=== PATIENT | male | born 1965 | race Caucasian/White ===

== ENCOUNTER 2017-06-21 14:53 | Emergency (ER) | payer MEDICAID ==
[~2017-06-21] VITALS: Ht 167.6 cm; Wt 116.0 kg
[2017-06-22] MEDS ORDERED: SULF1TAB49 PO (19:13)
[2017-06-22] MEDS ORDERED: CEPH500C5 PO (19:13)
== END 2017-06-21 16:45 | disposition left against medical advice (07) ==
LOC: MERGE 14:53 → ER 14:53
DX: H00.036 Abscess of eyelid left eye, unspecified eyelid (principal); L02.01 Cutaneous abscess of face
CPT/HCPCS: 99281

== ENCOUNTER 2017-06-22 17:21 | Emergency (ER) | payer MEDICAID ==
[~2017-06-22] VITALS: Ht 167.6 cm; Wt 117.0 kg
[2017-06-22] MEDS ORDERED: SULF1TAB49 PO (19:13)
[2017-06-22] MEDS ORDERED: CEPH500C5 PO (19:13)
== END 2017-06-22 19:33 | disposition left against medical advice (07) ==
LOC: ER 17:22 → MERGE 17:22 → ER 19:33
DX: L03.213 Periorbital cellulitis (principal); L02.01 Cutaneous abscess of face; H44.002 Unspecified purulent endophthalmitis, left eye; F17.200 Nicotine dependence, unspecified, uncomplicated; Z79.2 Long term (current) use of antibiotics
CPT/HCPCS: 99283

== ENCOUNTER 2020-07-17 02:44 | Inpatient (IN) | payer MEDICAID ==
[~2020-07-17] VITALS: Ht 167.6 cm; Wt 111.4 kg
[2020-07-17] MEDS ORDERED: normal saline 1000ML IV soln IVB ONE (03:05)
[2020-07-17 03:39] LABS: CLARITY,URINE CLEAR (Clear); COLOR,URINE YELLOW (Yellow); GLUCOSE, URINE >=1000 mg/dl (Neg); KETONES,URINE 40 mg/dl (Neg); LEUKOCYTE ESTERASE ,URINE NEGATIVE (Neg); NITRITES, URINE NEGATIVE (Neg); OCCULT BLOOD,URINE TRACE-INTACT (Neg); PH,URINE 5.5 (4.8-8.0); PROTEIN,URINE 30 mg/dl (Neg); UROBILINOGEN,URINE 0.2 E.U/dL (0.2-1.0)
[2020-07-17 03:42] LABS: BASOPHILS % (AUTO) 0.4 % (0-1); EOSINOPHILS % (AUTO) 0.1 % (0-6); HEMATOCRIT 52.8 % (42.0-52.0); HEMOGLOBIN 17.3 g/dl (14.0-17.9); LYMPHOCYTES # (AUTO) 0.5 X10'3 (1.1-4.8); LYMPHOCYTES % (AUTO) 4.9 % (21-51); MEAN CORPUSCULAR HEMOGLOBIN 30.2 PG (27.0-31.0); MEAN CORPUSCULAR HGB CONC 32.8 g/dL (33.0-36.5); MEAN PLATELET VOLUME 8.7 FL (7.4-10.4); MONOCYTES # (AUTO) 0.3 X10'3 (0-0.9); MONOCYTES % (AUTO) 2.7 % (2-12); NEUTROPHILS # (AUTO) 9.6 X10'3 (1.8-7.7); NEUTROPHILS % (AUTO) 91.9 % (42-75); PLATELET COUNT 433 X10'3 (140-440); RED BLOOD COUNT 5.74 X10'6 (4.70-6.10); WHITE BLOOD COUNT 10.4 X10'3 (4.5-11.0)
--- NOTE | 2020-07-17 03:43 | NUR ---
during triage assessment, pt repeating requests for water and unable to be redirected. pt became agitated with staff when refused water due to choking the first time water was provided to pt. pt does not remember this event. perseverating on receiving water.
[2020-07-17 03:47] LABS: UA COLLECTION TYPE VOIDED
--- NOTE | 2020-07-17 03:59 | NUR ---
patient to altered to be in room one w/o eyes on patient patient pulled out iv demanding glass of water in an elevated voice, patient easy to redirect
[2020-07-17 04:01] LABS: ALANINE AMINOTRANSFERASE 48 U/L (12-78); ALBUMIN 3.5 G/DL (3.4-5.0); ALBUMIN/GLOBULIN RATIO 0.7 (1.1-1.5); ALKALINE PHOSPHATASE 130 IU/L (46-116); ANION GAP 20 (8-16); ASPARTATE AMINO TRANSFERASE 23 U/L (10-37); BILIRUBIN,TOTAL 0.4 MG/DL (0.1-1.0); BLOOD UREA NITROGEN 30 MG/DL (7-18); BUN/CREATININE RATIO 20.1 (5.4-32.0); CALCIUM 9.1 MG/DL (8.5-10.1); CHLORIDE 99 MMOL/L (99-107); CREATINE KINASE 101 U/L (39-308); CREATININE 1.49 MG/DL (0.60-1.10); LIPASE 171 U/L (73-393); POTASSIUM 5.2 MMOL/L (3.5-5.1); SODIUM 138 MMOL/L (135-145); TOTAL CARBON DIOXIDE 19.3 MMOL/L (24-32); TOTAL PROTEIN 8.4 G/DL (6.4-8.2); TROPONIN I < 0.04 NG/ML (0.0-0.05); eGFR 49 ML/MIN
[2020-07-17 04:04] LABS: WBC,URINE 0-4 /HPF (0-4)
[2020-07-17 04:05] LABS: BACTERIA,URINE 1+ /HPF (Neg); RBC,URINE 0-2 /HPF (0-2); SQUAMOUS EPITHELIAL CELL,UR MODERATE /LPF (FEW)
[2020-07-17 04:10] LABS: GLUCOSE 618 MG/DL (70-104)
[2020-07-17] MEDS ORDERED: insulin regular, human 10 units/0.1 ml syringe IV ONE (04:10)
[2020-07-17] MEDS ORDERED: iohexol 350MG/ML 100ml bottle IV ONE (04:14)
--- NOTE | 2020-07-17 05:25 | NUR ---
DR. COY AT BEDSIDE ASSESSING PATIENT
[2020-07-17] MEDS ORDERED: NO HOME MEDS (05:34)
[2020-07-17] MEDS ORDERED: insulin glargine (Lantus) pen - multi-dose SQ ONE (05:35)
[2020-07-17] MEDS ORDERED: normal saline 1000ml 1,000 ML IVB ONE (05:35)
[2020-07-17] MEDS ORDERED: acetaminophen 325mg tablet PO PRN (05:40)
[2020-07-17] MEDS ORDERED: mag hydrox/Alum hydrox/simeth 30ml oral suspension PO PRN (05:40)
[2020-07-17] MEDS ORDERED: ondansetron/PF 4mg/2ml inj IV PRN (05:40)
[2020-07-17] MEDS ORDERED: magnesium hydroxide 30ml (MOM) UD suspension PO PRN (05:40)
[2020-07-17] MEDS: normal saline 1000ml 1,000 ML IV SCH ×2 (05:40→21:20)
[2020-07-17] MEDS ORDERED: dextrose ORAL solution 15 GM/59 ML bottle PO PRN ×2 (05:45)
[2020-07-17] MEDS ORDERED: dextrose 50%-water 50ml dispensing syringe IV PRN ×2 (05:45)
[2020-07-17] MEDS ORDERED: MESSAGE TO PHARMACY PO ONE (05:45)
[2020-07-17] MEDS ORDERED: glucagon, human recombinant 1mg kit SUBCUT PRN (05:45)
--- NOTE | 2020-07-17 05:50 | NUR ---
CALLED PHARMACY FOR PATIENTS JEREMY, PHARMACY VERBALIZED IT IS IN THE PROCESS OF GETTING PULLED
--- NOTE | 2020-07-17 05:59 | NUR ---
PATIENT HAS BEEN GIVEN 2 LITERS OF ICE WATER TOTAL SINCE DR. COY AT BEDSIDE
[2020-07-17 06:19] LABS: URINE AMPHETAMINE SCREEN POSITIVE (Neg); URINE BARBITUATE SCREEN NEGATIVE (Neg); URINE BENZODIAZEPINES SCREEN NEGATIVE (Neg); URINE CANNABINOID SCREEN NEGATIVE (Neg); URINE COCAINE SCREEN NEGATIVE (Neg); URINE METHADONE SCREEN NEGATIVE (Neg); URINE OPIATE SCREEN NEGATIVE (Neg); URINE PHENCYCLIDINE SCREEN NEGATIVE (Neg)
[2020-07-17 07:25] LABS: HEMOGLOBIN A1C 9.8 % (4.5-6.2)
[2020-07-17] MEDS: enoxaparin 40mg/0.4ml syringe SUBCUT SCH (09:30)
[2020-07-17 10:06] VITALS: BP 148/70
--- NOTE | 2020-07-17 11:30 | NUR ---
DM Consult: A1C 9.8. Pt admit w/ ALOC found sleeping outside his [place] was stuck on railroad tracks per EMR. DX new onset DM, dehydration, and ALOC per EMR. Glu 618 on admit down to 396 currently w/ family hx DM but no hx DM TOWN ADMINISTRATOR or PCP per EMR. Positive for meth this admit as well. PO 0% first carb controlled meal this AM. Pt would benefit from thorough DM ed this admit given new onset once has received official DX by . EFRAIN unable to provide DM ed until official DM DX provided this admit. Will continue to monitor for protein/kcal and DM ed needs this admit. Rec: 1. continue carb controlled diet; encourage PO 2. monitor for ONS needs 3. routine bowel care 4. scaled wt this admit 5. DM ed prior to discharge once pt received official DM DX by Addendum: 07/17/20 at [address] Amended: Links added.
--- NOTE | 2020-07-17 12:00 | NUR ---
Patient in room ORTHO 4011. I have received report from Ren Finch and had the opportunity to ask questions and assume patient care.
[2020-07-17] MEDS: insulin Lispro (HumaLOG) vial - multi-dose SQ SCH ×3 (13:18→21:19)
[2020-07-17 18:00] VITALS: BP 121/72
--- NOTE | 2020-07-17 18:46 | NUR ---
Patient in room ORTHO 4011. I have received report from Rosemary NETTLES and had the opportunity to ask questions and assume patient care.
[2020-07-17] MEDS: insulin glargine (Lantus) pen - multi-dose SQ SCH (21:18)
[2020-07-17 22:00] VITALS: BP 105/74
[2020-07-18] MEDS: normal saline 1000ml 1,000 ML IV SCH ×3 (02:03→21:42)
--- NOTE | 2020-07-18 06:09 | NUR ---
Problems reprioritized. Patient report given, questions answered & plan of care reviewed with Meek NETTLES.
[2020-07-18 07:30] VITALS: BP 109/61
[2020-07-18] MEDS: enoxaparin 40mg/0.4ml syringe SUBCUT SCH (08:05)
[2020-07-18] MEDS: insulin Lispro (HumaLOG) vial - multi-dose SQ SCH ×3 (08:09→19:29)
[2020-07-18 08:28] LABS: BASOPHILS # (AUTO) 0.1 X10'3 (0-0.2); EOSINOPHILS % (AUTO) 0.4 % (0-6); HEMATOCRIT 44.9 % (42.0-52.0); HEMOGLOBIN 15.3 g/dl (14.0-17.9); LYMPHOCYTES # (AUTO) 3.1 X10'3 (1.1-4.8); LYMPHOCYTES % (AUTO) 36.9 % (21-51); MEAN CORPUSCULAR HEMOGLOBIN 30.1 PG (27.0-31.0); MEAN CORPUSCULAR VOLUME 88.6 FL (78-98); MEAN PLATELET VOLUME 8.5 FL (7.4-10.4); MONOCYTES # (AUTO) 0.6 X10'3 (0-0.9); MONOCYTES % (AUTO) 7.7 % (2-12); NEUTROPHILS # (AUTO) 4.5 X10'3 (1.8-7.7); PLATELET COUNT 365 X10'3 (140-440); RED BLOOD COUNT 5.07 X10'6 (4.70-6.10); RED CELL DISTRIBUTION WIDTH 13.3 % (11.5-14.5); WHITE BLOOD COUNT 8.3 X10'3 (4.5-11.0)
[2020-07-18 08:59] LABS: ALANINE AMINOTRANSFERASE 41 U/L (12-78); ALBUMIN 3.1 G/DL (3.4-5.0); ALBUMIN/GLOBULIN RATIO 0.8 (1.1-1.5); ALKALINE PHOSPHATASE 88 IU/L (46-116); ANION GAP 11 (8-16); ASPARTATE AMINO TRANSFERASE 33 U/L (10-37); BILIRUBIN,TOTAL 0.6 MG/DL (0.1-1.0); BLOOD UREA NITROGEN 20 MG/DL (7-18); BUN/CREATININE RATIO 20.4 (5.4-32.0); CALCIUM 8.6 MG/DL (8.5-10.1); CHLORIDE 100 MMOL/L (99-107); CREATININE 0.98 MG/DL (0.60-1.10); GLUCOSE 298 MG/DL (70-104); POTASSIUM 3.8 MMOL/L (3.5-5.1); SODIUM 137 MMOL/L (135-145); TOTAL CARBON DIOXIDE 25.7 MMOL/L (24-32); TOTAL PROTEIN 7.2 G/DL (6.4-8.2); eGFR 80 ML/MIN
[2020-07-18 10:10] VITALS: BP 136/72
[2020-07-18 14:15] VITALS: BP 128/83
--- NOTE | 2020-07-18 16:08 | NUR ---
DM Education: supervisor international reservations visited pt at bedside to provide written and verbal DM education. D/w pt importance of eating protein with meals and snacks, eating non-starchy vegetables, staying hydrated and practicing portion sizes. Practiced breakfast meal planning with pt, and set up a goal of eating 45-60grams of carbohydrates per meal. Encouraged pt to f/u with MD to discuss diabetes medication and having a blood glucose monitor. Patient is very attentive and verbalized understanding of DM education. Will continue to monitor. Addendum: 07/18/20 at [address] Amended: Links added.
[2020-07-18 18:00] VITALS: BP_SYST 125; BP_SYST 135; BP_SYST 164; BP_DIAS 113; BP_DIAS 84; BP_DIAS 97
--- NOTE | 2020-07-18 18:00 | NUR ---
Problems reprioritized. Patient report given, questions answered & plan of care reviewed with RN.
[2020-07-18] MEDS: insulin glargine (Lantus) pen - multi-dose SQ SCH (21:11)
[2020-07-18 22:00] VITALS: BP 134/85
[2020-07-19] MEDS: normal saline 1000ml 1,000 ML IV SCH (05:02)
[2020-07-19 06:00] VITALS: BP 132/98
--- NOTE | 2020-07-19 06:42 | NUR ---
Patient in room ORTHO 4011. I have received report from Elizabeth NETTLES and had the opportunity to ask questions and assume patient care.
[2020-07-19 07:39] LABS: BASOPHILS % (AUTO) 0.3 % (0-1); EOSINOPHILS % (AUTO) 0.7 % (0-6); HEMATOCRIT 44.7 % (42.0-52.0); LYMPHOCYTES % (AUTO) 39.3 % (21-51); MEAN CORPUSCULAR HEMOGLOBIN 29.6 PG (27.0-31.0); MEAN CORPUSCULAR HGB CONC 33.5 g/dL (33.0-36.5); MEAN CORPUSCULAR VOLUME 88.2 FL (78-98); MEAN PLATELET VOLUME 8.2 FL (7.4-10.4); MONOCYTES # (AUTO) 0.5 X10'3 (0-0.9); MONOCYTES % (AUTO) 10.6 % (2-12); NEUTROPHILS # (AUTO) 2.5 X10'3 (1.8-7.7); NEUTROPHILS % (AUTO) 49.1 % (42-75); PLATELET COUNT 330 X10'3 (140-440); RED BLOOD COUNT 5.07 X10'6 (4.70-6.10); RED CELL DISTRIBUTION WIDTH 13.2 % (11.5-14.5); WHITE BLOOD COUNT 5.1 X10'3 (4.5-11.0)
[2020-07-19] MEDS: enoxaparin 40mg/0.4ml syringe SUBCUT SCH (08:06)
[2020-07-19] MEDS: insulin Lispro (HumaLOG) vial - multi-dose SQ SCH ×2 (08:06→13:29)
[2020-07-19 08:09] LABS: ALANINE AMINOTRANSFERASE 43 U/L (12-78); ALBUMIN 2.5 G/DL (3.4-5.0); ALBUMIN/GLOBULIN RATIO 0.7 (1.1-1.5); ALKALINE PHOSPHATASE 75 IU/L (46-116); ANION GAP 6 (8-16); ASPARTATE AMINO TRANSFERASE 32 U/L (10-37); BILIRUBIN,TOTAL 0.4 MG/DL (0.1-1.0); BLOOD UREA NITROGEN 12 MG/DL (7-18); BUN/CREATININE RATIO 17.9 (5.4-32.0); CALCIUM 8.4 MG/DL (8.5-10.1); CHLORIDE 105 MMOL/L (99-107); CREATININE 0.67 MG/DL (0.60-1.10); GLUCOSE 232 MG/DL (70-104); POTASSIUM 3.5 MMOL/L (3.5-5.1); SODIUM 140 MMOL/L (135-145); TOTAL CARBON DIOXIDE 29.4 MMOL/L (24-32); eGFR > 90 ML/MIN
[2020-07-19 08:15] VITALS: BP 141/67
[2020-07-19 08:17] VITALS: BP 135/93
[2020-07-19 08:18] VITALS: BP 153/90
[2020-07-19 09:57] VITALS: BP 119/55
--- NOTE | 2020-07-19 12:59 | NUR ---
Paged Dr. Patel PAGER ID: [phone] MESSAGE: Ortho/ Neuro Tyra NETTLES ext [phone]. RE; Christie Kuhn. Patient do no have glucometer at home and does not know how to use it. I will teach him here but he still need his own. His mom will teach him he said, Need rx for strips and needles
[2020-07-19] MEDS ORDERED: INSU100I25 SQ (13:24)
[2020-07-19] MEDS ORDERED: PEN1DIS.78 SQ (13:24)
--- NOTE | 2020-07-19 14:49 | NUR ---
Discharge instructions given to patient including diabetes management on the DM [employer] skills packet, A1C discussed with the patient, how to check blood glucose, how to administer insulin, discouraged patient on sharing needles and proper disposal of needle to sharp container. I also discussed importance of making sure he establish care with a PCP at [facility] on Tuesday07/21/20 to get appointment and to have a provider manage his diabetes. A yellow script prescription for glucometer, lancets, strips, and control solution was given to patient, was placed inside his discharge folder. Prescription for Levemir was e-sent to his pharmacy. Signs and symptoms to watch for and to check his blood sugar if he is feeling sick. Patient verbalized understanding of all instructions made. Peripheral IV catheter removed, tip intact. Instructed patient to ensure he has all his belongings with him before leaving. Patient awaiting for his mom to give him a ride.
== END 2020-07-19 15:00 | disposition home or self-care (01) | DRG 420 ==
LOC: ER 02:45 → ED HOLD 05:38 → ORTHO 4S 08:04
PROVIDERS: ADMIT Internal Medicine; ATTEND Internal Medicine
DX: E11.65 Type 2 diabetes mellitus with hyperglycemia (principal); E86.0 Dehydration; E87.2 Acidosis; G93.41 Metabolic encephalopathy; E66.01 Morbid (severe) obesity due to excess calories; K80.20 Calculus of gallbladder without cholecystitis without obstruction; R55 Syncope and collapse; N17.0 Acute kidney failure with tubular necrosis; Z83.3 Family history of diabetes mellitus; Z68.37 Body mass index [BMI] 37.0-37.9, adult
CPT/HCPCS: 36415; 70450; 71045; 71275; 80053; 80305; 81001; 82550; 82948; 83036; 83690; 83880; 84484; 85025; 93005; 93306; 93880; 96374; 99285; G0378; J1650; J1815; J7030; Q9967

== ENCOUNTER 2021-03-20 08:00 | Emergency (ER) | payer MEDICAID ==
[~2021-03-20] VITALS: Ht 167.6 cm; Wt 95.5 kg
[~2021-03-20 08:00] MED LIST: INSU100I25 SQ; PEN1DIS.78 SQ
[2021-03-20] MEDS ORDERED: BENZ-16 PO (08:25)
[2021-03-20] MEDS ORDERED: normal saline 1000ML IV soln IVB ONE (08:45)
[2021-03-20] MEDS ORDERED: ondansetron/PF 4mg/2ml inj IV ONE (08:45)
[2021-03-20 09:24] LABS: BASOPHILS % (AUTO) 0.8 % (0-1); EOSINOPHILS % (AUTO) 0 % (0-6); HEMATOCRIT 47.8 % (42.0-52.0); HEMOGLOBIN 16.8 g/dl (14.0-17.9); LYMPHOCYTES # (AUTO) 0.7 X10'3 (1.1-4.8); LYMPHOCYTES % (AUTO) 22.3 % (21-51); MEAN CORPUSCULAR HEMOGLOBIN 30.7 PG (27.0-31.0); MEAN CORPUSCULAR HGB CONC 35.3 g/dL (33.0-36.5); MEAN CORPUSCULAR VOLUME 87.2 FL (78-98); MEAN PLATELET VOLUME 7.4 FL (7.4-10.4); MONOCYTES # (AUTO) 0.3 X10'3 (0-0.9); MONOCYTES % (AUTO) 9.8 % (2-12); NEUTROPHILS # (AUTO) 2.2 X10'3 (1.8-7.7); NEUTROPHILS % (AUTO) 67.1 % (42-75); PLATELET COUNT 256 X10'3 (140-440); RED BLOOD COUNT 5.48 X10'6 (4.70-6.10); WHITE BLOOD COUNT 3.3 X10'3 (4.5-11.0)
[2021-03-20 09:37] LABS: ALANINE AMINOTRANSFERASE 39 U/L (12-78); ALBUMIN 2.9 G/DL (3.4-5.0); ALBUMIN/GLOBULIN RATIO 0.6 (1.1-1.5); ALKALINE PHOSPHATASE 107 IU/L (46-116); ANION GAP 9 (8-16); ASPARTATE AMINO TRANSFERASE 25 U/L (10-37); BILIRUBIN,TOTAL 0.4 MG/DL (0.1-1.0); BLOOD UREA NITROGEN 14 MG/DL (7-18); BUN/CREATININE RATIO 16.7 (5.4-32.0); CALCIUM 8.5 MG/DL (8.5-10.1); CHLORIDE 96 MMOL/L (99-107); CREATININE 0.84 MG/DL (0.60-1.10); GLUCOSE 277 MG/DL (70-104); LIPASE 88 U/L (73-393); POTASSIUM 4.2 MMOL/L (3.5-5.1); SODIUM 132 MMOL/L (135-145); TOTAL CARBON DIOXIDE 27.3 MMOL/L (24-32); TOTAL PROTEIN 7.6 G/DL (6.4-8.2); eGFR > 90 ML/MIN
--- NOTE | 2021-03-20 09:50 | NUR ---
pt to ct, pt refused to have covid swab done, slapped my hands away while attempting to swab pt. provider notified.
[2021-03-20 11:33] LABS: URINE AMPHETAMINE SCREEN POSITIVE (Neg); URINE BARBITUATE SCREEN NEGATIVE (Neg); URINE BENZODIAZEPINES SCREEN NEGATIVE (Neg); URINE CANNABINOID SCREEN NEGATIVE (Neg); URINE COCAINE SCREEN NEGATIVE (Neg); URINE METHADONE SCREEN NEGATIVE (Neg); URINE OPIATE SCREEN NEGATIVE (Neg); URINE PHENCYCLIDINE SCREEN NEGATIVE (Neg)
[2021-03-20 12:21] VITALS: BP 96/67
== END 2021-03-20 12:22 | disposition home or self-care (01) ==
LOC: ER 08:01
DX: J18.9 Pneumonia, unspecified organism (principal); R05.9 Cough, unspecified; R10.13 Epigastric pain; R11.0 Nausea; R19.7 Diarrhea, unspecified; R06.02 Shortness of breath; R51.9 Headache, unspecified; E11.9 Type 2 diabetes mellitus without complications; Z79.4 Long term (current) use of insulin
CPT/HCPCS: 36415; 71045; 74176; 80053; 80305; 83690; 84145; 84484; 85025; 96374; 99285; J2405; J7030

== ENCOUNTER 2022-08-28 12:23 | Inpatient (IN) | payer MEDICAID ==
[~2022-08-28] VITALS: Ht 170.2 cm; Wt 95.2 kg
[~2022-08-28 12:23] MED LIST changes: -INSU100I25 SQ; +INSU100I27 SQ
[2022-08-28 12:46] LABS: BASOPHILS # (AUTO) 0.1 X10'3 (0-0.2); BASOPHILS % (AUTO) 0.7 % (0-1); EOSINOPHILS % (AUTO) 0.3 % (0-6); HEMATOCRIT 47.4 % (42.0-52.0); HEMOGLOBIN 16.1 g/dl (14.0-17.9); LYMPHOCYTES # (AUTO) 1.5 X10'3 (1.1-4.8); LYMPHOCYTES % (AUTO) 16.9 % (21-51); MEAN CORPUSCULAR HEMOGLOBIN 29.9 PG (27.0-31.0); MEAN CORPUSCULAR HGB CONC 33.9 g/dL (33.0-36.5); MEAN CORPUSCULAR VOLUME 88.3 FL (78-98); MEAN PLATELET VOLUME 7.8 FL (7.4-10.4); MONOCYTES # (AUTO) 1.1 X10'3 (0-0.9); MONOCYTES % (AUTO) 12.3 % (2-12); NEUTROPHILS # (AUTO) 6.3 X10'3 (1.8-7.7); NEUTROPHILS % (AUTO) 69.8 % (42-75); PLATELET COUNT 514 X10'3 (140-440); RED BLOOD COUNT 5.37 X10'6 (4.70-6.10); RED CELL DISTRIBUTION WIDTH 13.1 % (11.5-14.5); WHITE BLOOD COUNT 9.1 X10'3 (4.5-11.0)
[2022-08-28 13:07] LABS: ALANINE AMINOTRANSFERASE 24 U/L (12-78); ALBUMIN 2.5 G/DL (3.4-5.0); ALBUMIN/GLOBULIN RATIO 0.5 (1.1-1.5); ALKALINE PHOSPHATASE 94 IU/L (46-116); ANION GAP 11 (8-16); ASPARTATE AMINO TRANSFERASE 18 U/L (10-37); BILIRUBIN,TOTAL 0.5 MG/DL (0.1-1.0); BLOOD UREA NITROGEN 15 MG/DL (7-18); BUN/CREATININE RATIO 16.7 (10.0-20.0); CALCIUM 9.2 MG/DL (8.5-10.1); CHLORIDE 97 MMOL/L (99-107); GLUCOSE 363 MG/DL (70-104); POTASSIUM 4.4 MMOL/L (3.5-5.1); SODIUM 132 MMOL/L (135-145); TOTAL CARBON DIOXIDE 23.9 MMOL/L (24-32); eGFR 87 ML/MIN
[2022-08-28 13:09] LABS: MAGNESIUM 1.7 MG/DL (1.5-2.4)
[2022-08-28] MEDS ORDERED: normal saline 1000ML IV soln IVB ONE (13:20)
[2022-08-28] MEDS ORDERED: iohexol 350MG/ML 100ml bottle IV ONE (13:39)
[2022-08-28] MEDS ORDERED: dexamethasone sod phosphate 10mg/ml inj PO STA (14:22)
[2022-08-28] MEDS ORDERED: ceFAZolin 1GM/D5W- ADD-VANTAGE 50 ML IV ONE (14:25)
[2022-08-28] MEDS ORDERED: furosemide 10 MG/1 ML 10ml inj IV ONE (14:25)
[2022-08-28] MEDS ORDERED: albuterol 2.5 MG/3 ML nebule NEB ONE (15:00)
[2022-08-28] MEDS ORDERED: glucagon, human recombinant 1mg kit SUBCUT PRN (16:00)
[2022-08-28] MEDS ORDERED: mag hydrox/Alum hydrox/simeth 30ml oral suspension PO PRN (16:00)
[2022-08-28] MEDS ORDERED: potassium Cl 40MEQ/1/2NS 520ml 520 ML IV PRN (16:00)
[2022-08-28] MEDS ORDERED: albuterol 2.5 MG/3 ML nebule NEB PRN (16:00)
[2022-08-28] MEDS ORDERED: magnesium 4gm in 100ml NS 100 ML IV PRN (16:00)
[2022-08-28] MEDS ORDERED: dextrose 50%-water 50ml dispensing syringe IV PRN ×2 (16:00)
[2022-08-28] MEDS ORDERED: DEXTROSE 15 GM of carb/4 tabs (each vial/BOTTLE has 4 tablets) PO PRN ×2 (16:00)
[2022-08-28] MEDS ORDERED: ipratropium/albuterol 3ml nebule NEB PRN (16:00)
[2022-08-28] MEDS ORDERED: HYDROcodone/acetaminophen 10/325mg tab PO PRN (16:00)
[2022-08-28] MEDS ORDERED: potassium Cl 20 mEq SR tablet PO PRN ×2 (16:00)
[2022-08-28] MEDS ORDERED: MESSAGE TO PHARMACY PO ONE (16:00)
[2022-08-28] MEDS ORDERED: PERFLUTREN PROTEIN-A MICROSPHR (Optison) 0.22 MG/ML 3ML VIAL IV ONE (16:00)
[2022-08-28] MEDS ORDERED: ondansetron/PF 4mg/2ml inj IV PRN (16:00)
[2022-08-28] MEDS ORDERED: acetaminophen 325mg tablet PO PRN ×2 (16:00)
[2022-08-28] MEDS: azithromycin 250mg tablet PO SCH (16:10)
[2022-08-28 16:40] LABS: CLARITY,URINE CLEAR (Clear); COLOR,URINE YELLOW (Yellow); GLUCOSE, URINE >=1000 mg/dl (Neg); KETONES,URINE 15 mg/dl (Neg); LEUKOCYTE ESTERASE ,URINE NEGATIVE (Neg); NITRITES, URINE NEGATIVE (Neg); OCCULT BLOOD,URINE NEGATIVE (Neg); PH,URINE 5.5 (4.8-8.0); PROTEIN,URINE NEGATIVE (Neg); UROBILINOGEN,URINE 0.2 E.U/dL (0.2-1.0)
[2022-08-28 16:43] LABS: UA COLLECTION TYPE CLN CATCH MIDSTREAM
[2022-08-28 16:45] LABS: BACTERIA,URINE NONE SEEN /HPF (Neg); MUCUS STRANDS NONE SEEN /LPF (Neg); RBC,URINE NONE SEEN /HPF (0-2); SQUAMOUS EPITHELIAL CELL,UR NONE SEEN /LPF (FEW); WBC,URINE NONE SEEN /HPF (0-4)
[2022-08-28 16:52] LABS: URINE AMPHETAMINE SCREEN POSITIVE (Neg); URINE BARBITUATE SCREEN NEGATIVE (Neg); URINE BENZODIAZEPINES SCREEN NEGATIVE (Neg); URINE CANNABINOID SCREEN NEGATIVE (Neg); URINE COCAINE SCREEN NEGATIVE (Neg); URINE METHADONE SCREEN NEGATIVE (Neg); URINE OPIATE SCREEN NEGATIVE (Neg); URINE PHENCYCLIDINE SCREEN NEGATIVE (Neg)
[2022-08-28 19:17] VITALS: BP 120/75
[2022-08-28] MEDS: enoxaparin 40mg/0.4ml syringe SQ SCH (20:00)
[2022-08-28] MEDS: K and/or MAG REPLACEMENT MC SCH (20:00)
[2022-08-28 20:15] VITALS: BP 113/68
[2022-08-28 20:50] LABS: HEMOGLOBIN A1C > 12.0 % (4.5-6.2)
--- NOTE | 2022-08-28 21:55 | NUR ---
Spoke to Dr. Benjamin via telephone. aware on 14 beat run of vtach. Pt non-symptomatic and vitals stable. No new orders at this time. also aware of BG of 496. Okay to only give amount of insulin per protocol.
[2022-08-28] MEDS: docusate sod 100mg capsule PO SCH (21:59)
[2022-08-28] MEDS: methylPREDNISolone sod succ/PF 40mg inj. IV SCH (21:59)
[2022-08-28 22:00] VITALS: BP 106/63
[2022-08-28] MEDS: insulin Lispro (HumaLOG) vial - multi-dose SQ SCH (22:12)
[2022-08-28] MEDS: insulin glargine (Lantus) pen - multi-dose SQ SCH (22:14)
[2022-08-29 06:57] VITALS: BP 112/65
[2022-08-29] MEDS ORDERED: PERFLUTREN PROTEIN-A MICROSPHR (Optison) 0.22 MG/ML 3ML VIAL IV ONE (07:00)
[2022-08-29 07:17] LABS: BASOPHILS % (AUTO) 0.2 % (0-1); EOSINOPHILS % (AUTO) 0 % (0-6); HEMATOCRIT 46.3 % (42.0-52.0); HEMOGLOBIN 15.8 g/dl (14.0-17.9); LYMPHOCYTES % (AUTO) 15.7 % (21-51); MEAN CORPUSCULAR HEMOGLOBIN 30.2 PG (27.0-31.0); MEAN CORPUSCULAR HGB CONC 34.2 g/dL (33.0-36.5); MEAN CORPUSCULAR VOLUME 88.4 FL (78-98); MEAN PLATELET VOLUME 8.2 FL (7.4-10.4); MONOCYTES # (AUTO) 0.2 X10'3 (0-0.9); MONOCYTES % (AUTO) 3.5 % (2-12); NEUTROPHILS # (AUTO) 4.9 X10'3 (1.8-7.7); NEUTROPHILS % (AUTO) 80.6 % (42-75); PLATELET COUNT 499 X10'3 (140-440); RED BLOOD COUNT 5.24 X10'6 (4.70-6.10); RED CELL DISTRIBUTION WIDTH 12.8 % (11.5-14.5); WHITE BLOOD COUNT 6.1 X10'3 (4.5-11.0)
[2022-08-29 07:32] LABS: ALANINE AMINOTRANSFERASE 28 U/L (12-78); ALBUMIN 2.4 G/DL (3.4-5.0); ALBUMIN/GLOBULIN RATIO 0.4 (1.1-1.5); ALKALINE PHOSPHATASE 94 IU/L (46-116); ANION GAP 12 (8-16); ASPARTATE AMINO TRANSFERASE 17 U/L (10-37); BILIRUBIN,TOTAL 0.3 MG/DL (0.1-1.0); BLOOD UREA NITROGEN 22 MG/DL (7-18); BUN/CREATININE RATIO 23.9 (10.0-20.0); CALCIUM 9.1 MG/DL (8.5-10.1); CHLORIDE 96 MMOL/L (99-107); CREATININE 0.92 MG/DL (0.60-1.10); GLUCOSE 401 MG/DL (70-104); MAGNESIUM 2.1 MG/DL (1.5-2.4); POTASSIUM 4.5 MMOL/L (3.5-5.1); SODIUM 133 MMOL/L (135-145); TOTAL CARBON DIOXIDE 25.3 MMOL/L (24-32); eGFR 85 ML/MIN
[2022-08-29] MEDS: K and/or MAG REPLACEMENT MC SCH ×2 (07:42→19:22)
[2022-08-29] MEDS: methylPREDNISolone sod succ/PF 40mg inj. IV SCH ×2 (07:53→20:10)
[2022-08-29] MEDS: azithromycin 250mg tablet PO SCH (07:53)
[2022-08-29] MEDS: docusate sod 100mg capsule PO SCH ×2 (07:53→20:15)
[2022-08-29] MEDS: furosemide 20 MG/2 ML vial IV SCH (08:21)
[2022-08-29] MEDS: CefTRIAXone/D5W-Rocephin 1gm 50 ML IV SCH (08:21)
[2022-08-29] MEDS: insulin Lispro (HumaLOG) vial - multi-dose SQ SCH ×4 (08:31→21:33)
--- NOTE | 2022-08-29 09:25 | NUR ---
Paged Dr. Patel notifying him patient had 7 beats of Vtach at 08:55.
[2022-08-29 10:00] VITALS: BP 120/90
[2022-08-29] MEDS: guaiFENesin ER 600mg tablet PO SCH ×2 (10:40→20:15)
--- NOTE | 2022-08-29 12:15 | NUR ---
Patient's afternoon blood glucose 435. Retook per hospital policy. Blood glucose 396.
[2022-08-29] MEDS ORDERED: NO HOME MEDS (12:22)
--- NOTE | 2022-08-29 14:39 | NUR ---
DM Consult: Pt hx T2DM A1C >12.0% admit DX COPD exacerbation, SOB, and meth abuse last A1C 11.0% 07/13' not taking insulin despite Rx per EMR. Pt receiving carb controlled/heart healthy diet started on glycemic protocol per EMR; would benefit from DM diet ed prior to discharge this admit. Addendum: 08/29/22 at [address] Amended: Links added.
[2022-08-29 18:00] VITALS: BP 118/64
--- NOTE | 2022-08-29 18:35 | NUR ---
Report given to Shira NETTLES
[2022-08-29 19:00] VITALS: BP 113/72
[2022-08-29] MEDS: enoxaparin 40mg/0.4ml syringe SQ SCH (20:15)
--- NOTE | 2022-08-29 20:30 | NUR ---
Assessment done at 2030, not 0830 Addendum: 08/29/22 at 2334 by Shira Gonsalez RN, RN Amended: Links added.
[2022-08-29] MEDS: insulin glargine (Lantus) pen - multi-dose SQ SCH (21:34)
[2022-08-29 22:00] VITALS: BP_SYST 114; BP_SYST 119; BP_DIAS 60; BP_DIAS 82
--- NOTE | 2022-08-30 01:20 | NUR ---
Patient in room [facility] 347. I have received report from RUTH and had the opportunity to ask questions and assume patient care.
[2022-08-30 05:26] LABS: BASOPHILS % (AUTO) 0.2 % (0-1); EOSINOPHILS % (AUTO) 0 % (0-6); HEMATOCRIT 46.3 % (42.0-52.0); HEMOGLOBIN 15.9 g/dl (14.0-17.9); LYMPHOCYTES # (AUTO) 1.4 X10'3 (1.1-4.8); LYMPHOCYTES % (AUTO) 11.6 % (21-51); MEAN CORPUSCULAR HEMOGLOBIN 29.9 PG (27.0-31.0); MEAN CORPUSCULAR HGB CONC 34.2 g/dL (33.0-36.5); MEAN CORPUSCULAR VOLUME 87.4 FL (78-98); MEAN PLATELET VOLUME 8.2 FL (7.4-10.4); MONOCYTES # (AUTO) 0.9 X10'3 (0-0.9); MONOCYTES % (AUTO) 7.2 % (2-12); PLATELET COUNT 581 X10'3 (140-440); RED CELL DISTRIBUTION WIDTH 12.6 % (11.5-14.5); WHITE BLOOD COUNT 12.3 X10'3 (4.5-11.0)
[2022-08-30 05:56] LABS: ALANINE AMINOTRANSFERASE 24 U/L (12-78); ALBUMIN 2.3 G/DL (3.4-5.0); ALBUMIN/GLOBULIN RATIO 0.4 (1.1-1.5); ALKALINE PHOSPHATASE 99 IU/L (46-116); ANION GAP 8 (8-16); ASPARTATE AMINO TRANSFERASE 22 U/L (10-37); BILIRUBIN,TOTAL 0.3 MG/DL (0.1-1.0); BLOOD UREA NITROGEN 27 MG/DL (7-18); CALCIUM 9.4 MG/DL (8.5-10.1); CHLORIDE 98 MMOL/L (99-107); CREATININE 0.87 MG/DL (0.60-1.10); GLUCOSE 341 MG/DL (70-104); MAGNESIUM 2.1 MG/DL (1.5-2.4); POTASSIUM 4.4 MMOL/L (3.5-5.1); SODIUM 135 MMOL/L (135-145); TOTAL CARBON DIOXIDE 29.4 MMOL/L (24-32); TOTAL PROTEIN 7.6 G/DL (6.4-8.2); eGFR > 90 ML/MIN
--- NOTE | 2022-08-30 06:37 | NUR ---
Problems reprioritized. Patient report given, questions answered & plan of care reviewed with
[2022-08-30 07:00] VITALS: BP 104/52
--- NOTE | 2022-08-30 07:02 | NUR ---
Patient in room TIESHA 347. I have received report from marky pulliam and had the opportunity to ask questions and assume patient care.
[2022-08-30] MEDS: K and/or MAG REPLACEMENT MC SCH ×2 (08:00→20:00)
[2022-08-30] MEDS: CefTRIAXone/D5W-Rocephin 1gm 50 ML IV SCH (08:05)
[2022-08-30] MEDS: guaiFENesin ER 600mg tablet PO SCH ×2 (08:05→21:47)
[2022-08-30] MEDS: docusate sod 100mg capsule PO SCH ×2 (08:06→21:47)
[2022-08-30] MEDS: azithromycin 250mg tablet PO SCH (08:06)
[2022-08-30] MEDS: methylPREDNISolone sod succ/PF 40mg inj. IV SCH ×2 (08:06→21:48)
[2022-08-30] MEDS: furosemide 20 MG/2 ML vial IV SCH ×2 (08:06→21:47)
[2022-08-30] MEDS: insulin Lispro (HumaLOG) vial - multi-dose SQ SCH ×3 (09:06→19:38)
[2022-08-30 10:00] VITALS: BP 120/70
--- NOTE | 2022-08-30 12:25 | NUR ---
patient seen by Dr Patel, and Moni OCHOA, both spoke to patient with regards health choices. Reinforced by this staff member since patients BS was 475 1200hrs because he was found to have eaten almost a full box of cheeseits . Educated on food choices and DM. sister present. DR Patel aware of BS. will continue to monitor
[2022-08-30] MEDS: metoprolol succinate 25mg (24-HOUR) SR. Tablet PO SCH (12:56)
[2022-08-30 13:20] LABS: CHOL/HDL RATIO 4.8 (0.00-4.99); CHOLESTEROL 186 MG/DL (0-200); HDL CHOLESTEROL 39 MG/DL (35-60); LDL CHOLESTEROL 118 MG/DL (50-100); TRIGLYCERIDES 76 MG/DL (20-135)
--- NOTE | 2022-08-30 16:45 | NUR ---
DM Consult: Pt Glu up to 475mg/dl from 361mg/dl earlier today on glycemic protocol but ate entire box of cheezits per RN notes. Pt has been encouraged to monitor CHO intake by RN and physician. RD provided written DM ed and attempted verbal DM diet ed to pt but pt unable to stay awake after first few minutes of conversation. Pt does report has has no DM diet ed in past; would benefit from thorough review once more appropriate this admit. Addendum: 08/30/22 at [address] Amended: Links added.
--- NOTE | 2022-08-30 17:40 | NUR ---
B/S 155, patient sleeping at this time. coughing intermittently IS present. patient needing to be encouraged with every task..
--- NOTE | 2022-08-30 18:17 | NUR ---
Problems reprioritized. Patient report given, questions answered & plan of care reviewed with Rosa NETTLES.
--- NOTE | 2022-08-30 18:30 | NUR ---
Patient in room TIES[facility] 347. I have received report from TR and had the opportunity to ask questions and assume patient care.
[2022-08-30 19:00] VITALS: BP 113/72
[2022-08-30] MEDS: insulin glargine (Lantus) pen - multi-dose SQ SCH (21:45)
[2022-08-30] MEDS: enoxaparin 40mg/0.4ml syringe SQ SCH (21:47)
[2022-08-30 22:00] VITALS: BP 119/82
[2022-08-31 05:59] LABS: BASOPHILS % (AUTO) 0.2 % (0-1); EOSINOPHILS % (AUTO) 0 % (0-6); HEMATOCRIT 46.3 % (42.0-52.0); HEMOGLOBIN 15.5 g/dl (14.0-17.9); LYMPHOCYTES # (AUTO) 1.3 X10'3 (1.1-4.8); LYMPHOCYTES % (AUTO) 10.4 % (21-51); MEAN CORPUSCULAR HEMOGLOBIN 29.3 PG (27.0-31.0); MEAN CORPUSCULAR HGB CONC 33.4 g/dL (33.0-36.5); MEAN CORPUSCULAR VOLUME 87.8 FL (78-98); MEAN PLATELET VOLUME 7.9 FL (7.4-10.4); MONOCYTES # (AUTO) 0.4 X10'3 (0-0.9); MONOCYTES % (AUTO) 3.5 % (2-12); NEUTROPHILS # (AUTO) 10.4 X10'3 (1.8-7.7); NEUTROPHILS % (AUTO) 85.9 % (42-75); PLATELET COUNT 568 X10'3 (140-440); RED BLOOD COUNT 5.27 X10'6 (4.70-6.10); RED CELL DISTRIBUTION WIDTH 12.7 % (11.5-14.5); WHITE BLOOD COUNT 12.2 X10'3 (4.5-11.0)
[2022-08-31 06:00] VITALS: BP 116/72
[2022-08-31 06:19] LABS: ALANINE AMINOTRANSFERASE 28 U/L (12-78); ALBUMIN 2.2 G/DL (3.4-5.0); ALBUMIN/GLOBULIN RATIO 0.4 (1.1-1.5); ALKALINE PHOSPHATASE 86 IU/L (46-116); ANION GAP 7 (8-16); ASPARTATE AMINO TRANSFERASE 19 U/L (10-37); BILIRUBIN,TOTAL 0.3 MG/DL (0.1-1.0); BLOOD UREA NITROGEN 29 MG/DL (7-18); BUN/CREATININE RATIO 32.2 (10.0-20.0); CALCIUM 9.2 MG/DL (8.5-10.1); CHLORIDE 98 MMOL/L (99-107); GLUCOSE 334 MG/DL (70-104); MAGNESIUM 1.9 MG/DL (1.5-2.4); POTASSIUM 4.5 MMOL/L (3.5-5.1); SODIUM 135 MMOL/L (135-145); TOTAL CARBON DIOXIDE 30.1 MMOL/L (24-32); TOTAL PROTEIN 7.2 G/DL (6.4-8.2); eGFR 87 ML/MIN
--- NOTE | 2022-08-31 06:19 | NUR ---
Patient in room TIES[facility] 347. I have received report from Rosa NETTLES and had the opportunity to ask questions and assume patient care.
--- NOTE | 2022-08-31 06:33 | NUR ---
Problems reprioritized. Patient report given, questions answered & plan of care reviewed with
[2022-08-31] MEDS: K and/or MAG REPLACEMENT MC SCH ×2 (08:00→20:00)
[2022-08-31] MEDS: docusate sod 100mg capsule PO SCH ×2 (08:01→19:36)
[2022-08-31] MEDS: CefTRIAXone/D5W-Rocephin 1gm 50 ML IV SCH (08:01)
[2022-08-31] MEDS: azithromycin 250mg tablet PO SCH (08:01)
[2022-08-31] MEDS: methylPREDNISolone sod succ/PF 40mg inj. IV SCH ×2 (08:01→19:36)
[2022-08-31] MEDS: metoprolol succinate 25mg (24-HOUR) SR. Tablet PO SCH (08:01)
[2022-08-31] MEDS: lisinopril 5mg tablet PO SCH (08:02)
[2022-08-31] MEDS: furosemide 20 MG/2 ML vial IV SCH ×2 (08:02→19:35)
[2022-08-31] MEDS: guaiFENesin ER 600mg tablet PO SCH ×2 (08:02→19:35)
[2022-08-31] MEDS: insulin Lispro (HumaLOG) vial - multi-dose SQ SCH ×4 (09:18→21:36)
--- NOTE | 2022-08-31 09:36 | NUR ---
Received order for consult. Met with patient in regards to substance use and to see if patient was interested in resources for treatment options. Patient declined and said he wanted to sleep. I will try again later today.
[2022-08-31 10:00] VITALS: BP 95/56
--- NOTE | 2022-08-31 13:20 | NUR ---
Went back to try to talk to patient about substance use treatment options and patient still asleep.
--- NOTE | 2022-08-31 14:33 | NUR ---
F/u 08/31: EFRAIN attempted f/u DM diet ed reinforcement but pt resting/sleeping and requested RD to come back in future. Addendum: 08/31/22 at [address] Amended: Links added.
[2022-08-31] MEDS: enoxaparin 40mg/0.4ml syringe SQ SCH (19:36)
[2022-08-31 20:00] VITALS: BP 110/74
[2022-08-31] MEDS: insulin glargine (Lantus) pen - multi-dose SQ SCH (21:30)
--- NOTE | 2022-08-31 23:39 | NUR ---
patient resistive to care at times during shift. Refused to have shower or walk with PT or staff. wants to be "left alone". Refuses also to learn how to inject self with insulin, states his girlfriend will do it for him. Time spent educating patient on DM and consequences of not taking care of self. patients response is "ok". will continue to monitor
--- NOTE | 2022-09-01 06:00 | NUR ---
Problems reprioritized. Patient report given, questions answered & plan of care reviewed with Rosalva NETTLES.
[2022-09-01 06:17] LABS: ALANINE AMINOTRANSFERASE 28 U/L (12-78); ALBUMIN 2.2 G/DL (3.4-5.0); ALBUMIN/GLOBULIN RATIO 0.4 (1.1-1.5); ALKALINE PHOSPHATASE 118 IU/L (46-116); ANION GAP 8 (8-16); ASPARTATE AMINO TRANSFERASE 14 U/L (10-37); BILIRUBIN,TOTAL 0.2 MG/DL (0.1-1.0); BLOOD UREA NITROGEN 28 MG/DL (7-18); BUN/CREATININE RATIO 33.7 (10.0-20.0); CALCIUM 9.2 MG/DL (8.5-10.1); CHLORIDE 100 MMOL/L (99-107); CREATININE 0.83 MG/DL (0.60-1.10); GLUCOSE 355 MG/DL (70-104); POTASSIUM 4.1 MMOL/L (3.5-5.1); SODIUM 136 MMOL/L (135-145); TOTAL CARBON DIOXIDE 28.1 MMOL/L (24-32); TOTAL PROTEIN 7.1 G/DL (6.4-8.2); eGFR > 90 ML/MIN
[2022-09-01 06:18] LABS: BASOPHILS % (AUTO) 0.2 % (0-1); EOSINOPHILS % (AUTO) 0 % (0-6); HEMATOCRIT 48.1 % (42.0-52.0); HEMOGLOBIN 16.3 g/dl (14.0-17.9); LYMPHOCYTES # (AUTO) 1.3 X10'3 (1.1-4.8); MEAN CORPUSCULAR HEMOGLOBIN 30.1 PG (27.0-31.0); MEAN CORPUSCULAR HGB CONC 33.9 g/dL (33.0-36.5); MEAN CORPUSCULAR VOLUME 88.6 FL (78-98); MEAN PLATELET VOLUME 7.8 FL (7.4-10.4); MONOCYTES # (AUTO) 0.6 X10'3 (0-0.9); MONOCYTES % (AUTO) 5.8 % (2-12); NEUTROPHILS # (AUTO) 8.7 X10'3 (1.8-7.7); PLATELET COUNT 559 X10'3 (140-440); RED BLOOD COUNT 5.43 X10'6 (4.70-6.10); RED CELL DISTRIBUTION WIDTH 12.9 % (11.5-14.5); WHITE BLOOD COUNT 10.7 X10'3 (4.5-11.0)
--- NOTE | 2022-09-01 06:58 | NUR ---
Problems reprioritized. Patient report given, questions answered & plan of care reviewed with Bridgette NETTLES.
[2022-09-01 07:00] VITALS: BP 134/80
[2022-09-01] MEDS: K and/or MAG REPLACEMENT MC SCH ×2 (08:00→19:06)
[2022-09-01] MEDS ORDERED: insulin glargine (Lantus) pen - multi-dose SQ ONE (08:40)
[2022-09-01] MEDS: atorvastatin 20mg tablet PO SCH (08:47)
[2022-09-01] MEDS: CefTRIAXone/D5W-Rocephin 1gm 50 ML IV SCH (08:47)
[2022-09-01] MEDS: metoprolol succinate 25mg (24-HOUR) SR. Tablet PO SCH (08:47)
[2022-09-01] MEDS: guaiFENesin ER 600mg tablet PO SCH ×2 (08:47→19:24)
[2022-09-01] MEDS: docusate sod 100mg capsule PO SCH ×2 (08:47→19:24)
[2022-09-01] MEDS: lisinopril 5mg tablet PO SCH (08:48)
[2022-09-01] MEDS: furosemide 20 MG/2 ML vial IV SCH ×2 (08:48→19:23)
[2022-09-01] MEDS: azithromycin 250mg tablet PO SCH (08:48)
[2022-09-01] MEDS: methylPREDNISolone sod succ/PF 40mg inj. IV SCH ×2 (08:49→19:23)
[2022-09-01] MEDS: insulin Lispro (HumaLOG) vial - multi-dose SQ SCH ×2 (08:58→19:27)
[2022-09-01 11:00] VITALS: BP 95/59
--- NOTE | 2022-09-01 11:18 | NUR ---
Initial: Pt seen by EFRAIN for verbal DM diet ed reinforcement; RD encouraged pt to contact dietitian's office if further nutrition questions/concerns. Pt admit DX COPD exacerbation, systolic heart failure, SOB, T2DM, meth abuse, and bronchiolitis vs early PNA per EMR. PO 100% heart healthy/carb controlled meals meeting estimated needs. LBM 08/28 receiving routine colace per EMR. No nutrition interventions at this time. Will continue to monitor. Rec: 1. continue heart healthy/carb controlled diet per MD 2. routine bowel care 3. scaled wt this admit; subsequent weekly wt Addendum: 09/01/22 at [address] Amended: Links added.
[2022-09-01 18:00] VITALS: BP 95/55
--- NOTE | 2022-09-01 18:05 | NUR ---
Patient in room TIESHA 347. I have received report from YOON Blackwell and had the opportunity to ask questions and assume patient care.
--- NOTE | 2022-09-01 18:17 | NUR ---
Problems reprioritized. Patient report given, questions answered & plan of care reviewed with Cassie NETTLES.
[2022-09-01] MEDS: enoxaparin 40mg/0.4ml syringe SQ SCH (19:23)
[2022-09-01] MEDS: insulin glargine (Lantus) pen - multi-dose SQ SCH (21:54)
[2022-09-01 22:00] VITALS: BP 100/59
[2022-09-02 06:00] VITALS: BP 138/74
--- NOTE | 2022-09-02 06:32 | NUR ---
Problems reprioritized. Patient report given, questions answered & plan of care reviewed with LC Whelan.
--- NOTE | 2022-09-02 06:48 | NUR ---
Patient in room TIESHA 347. I have received report from Cassie NETTLES and had the opportunity to ask questions and assume patient care. Pt is awake, denies pain, denies discomfort, pt requested cofffee this morning provided by roel.
[2022-09-02 07:14] LABS: EOSINOPHILS % (AUTO) 0 % (0-6); MONOCYTES # (AUTO) 0.7 X10'3 (0-0.9); NEUTROPHILS # (AUTO) 10.8 X10'3 (1.8-7.7)
[2022-09-02 07:17] LABS: BASOPHILS % (AUTO) 0.1 % (0-1); HEMATOCRIT 51.7 % (42.0-52.0); HEMOGLOBIN 17.1 g/dl (14.0-17.9); LYMPHOCYTES # (AUTO) 1.7 X10'3 (1.1-4.8); LYMPHOCYTES % (AUTO) 13.1 % (21-51); MEAN CORPUSCULAR HEMOGLOBIN 29.2 PG (27.0-31.0); MEAN CORPUSCULAR HGB CONC 33.1 g/dL (33.0-36.5); MEAN CORPUSCULAR VOLUME 88.3 FL (78-98); MONOCYTES % (AUTO) 5.5 % (2-12); NEUTROPHILS % (AUTO) 81.3 % (42-75); PLATELET COUNT 599 X10'3 (140-440); RED BLOOD COUNT 5.86 X10'6 (4.70-6.10); RED CELL DISTRIBUTION WIDTH 12.9 % (11.5-14.5); WHITE BLOOD COUNT 13.3 X10'3 (4.5-11.0)
[2022-09-02 07:39] LABS: ALANINE AMINOTRANSFERASE 49 U/L (12-78); ALBUMIN 2.3 G/DL (3.4-5.0); ALBUMIN/GLOBULIN RATIO 0.5 (1.1-1.5); ALKALINE PHOSPHATASE 76 IU/L (46-116); ANION GAP 8 (8-16); ASPARTATE AMINO TRANSFERASE 35 U/L (10-37); BILIRUBIN,TOTAL 0.2 MG/DL (0.1-1.0); BLOOD UREA NITROGEN 28 MG/DL (7-18); BUN/CREATININE RATIO 36.4 (10.0-20.0); CALCIUM 9.1 MG/DL (8.5-10.1); CHLORIDE 100 MMOL/L (99-107); CREATININE 0.77 MG/DL (0.60-1.10); GLUCOSE 204 MG/DL (70-104); MAGNESIUM 2.4 MG/DL (1.5-2.4); POTASSIUM 4.4 MMOL/L (3.5-5.1); SODIUM 136 MMOL/L (135-145); TOTAL CARBON DIOXIDE 27.9 MMOL/L (24-32); TOTAL PROTEIN 7.1 G/DL (6.4-8.2); eGFR > 90 ML/MIN
[2022-09-02] MEDS: K and/or MAG REPLACEMENT MC SCH (08:00)
[2022-09-02] MEDS: metoprolol succinate 25mg (24-HOUR) SR. Tablet PO SCH (08:53)
[2022-09-02] MEDS: atorvastatin 20mg tablet PO SCH (08:53)
[2022-09-02] MEDS: guaiFENesin ER 600mg tablet PO SCH (08:53)
[2022-09-02] MEDS: docusate sod 100mg capsule PO SCH (08:53)
[2022-09-02 08:54] VITALS: BP_SYST 138
[2022-09-02] MEDS: azithromycin 250mg tablet PO SCH (08:54)
[2022-09-02] MEDS: lisinopril 5mg tablet PO SCH (08:54)
[2022-09-02] MEDS: insulin glargine (Lantus) pen - multi-dose SQ SCH (08:58)
[2022-09-02] MEDS: insulin Lispro (HumaLOG) vial - multi-dose SQ SCH (08:59)
[2022-09-02] MEDS: CefTRIAXone/D5W-Rocephin 1gm 50 ML IV SCH (09:31)
[2022-09-02] MEDS: furosemide 20 MG/2 ML vial IV SCH (09:31)
[2022-09-02] MEDS: methylPREDNISolone sod succ/PF 40mg inj. IV SCH (09:32)
[2022-09-02] MEDS ORDERED: BLOO1EAC70 MC (10:52)
[2022-09-02] MEDS ORDERED: LANTUS SQ (10:52)
[2022-09-02] MEDS ORDERED: LEVO-65 PO (10:52)
[2022-09-02] MEDS ORDERED: LISI5TAB22 PO (10:52)
[2022-09-02] MEDS ORDERED: ATOR20TA66 PO (10:52)
[2022-09-02] MEDS ORDERED: IPRA4AER IH (10:52)
[2022-09-02] MEDS ORDERED: METO-395 PO (10:52)
[2022-09-02] MEDS ORDERED: LANC1COM7 SQ (10:52)
[2022-09-02] MEDS ORDERED: LANC-854 TOP (10:52)
[2022-09-02] MEDS ORDERED: FURO20TA4 PO (10:52)
[2022-09-02] MEDS ORDERED: SYRI-641 SUBCUT (10:55)
--- NOTE | 2022-09-02 12:38 | NUR ---
All written and verbal instructions provided to patient and significant other. All questions answered. Pt PIV discontinued. Grey Goods Examiner thoroughly reviewed written instructions including DM, CHF, exaberation of symptoms, taking all meds as ordered, ceasing smoking and drinking, monitoring blood sugar daily, DM daily eating plan, exercising, and initiating a PCP. Pt stated he will be going to [facility] or [facility]. Addendum: 09/02/22 at 1245 by [address] LVN Amended: Links added.
== END 2022-09-02 12:22 | disposition home or self-care (01) | DRG 140 ==
LOC: ER 12:24 → ED HOLD 16:06 → EDBEDREQ 17:08 → SUR 3N 19:13
PROVIDERS: ADMIT Family Medicine; ATTEND Family Medicine
PROC: B32T1ZZ Computerized Tomography (CT Scan) of Left Pulmonary Artery using Low Osmolar Contrast (ICD-10-PCS; principal; 2022-08-28)
PROC: B3201ZZ Computerized Tomography (CT Scan) of Thoracic Aorta using Low Osmolar Contrast (ICD-10-PCS; 2022-08-28)
PROC: B32S1ZZ Computerized Tomography (CT Scan) of Right Pulmonary Artery using Low Osmolar Contrast (ICD-10-PCS; 2022-08-28)
DX: J44.1 Chronic obstructive pulmonary disease with (acute) exacerbation (principal); J96.01 Acute respiratory failure with hypoxia; I50.21 Acute systolic (congestive) heart failure; I47.20 Ventricular tachycardia, unspecified; E87.1 Hypo-osmolality and hyponatremia; E11.65 Type 2 diabetes mellitus with hyperglycemia; L03.119 Cellulitis of unspecified part of limb; F17.210 Nicotine dependence, cigarettes, uncomplicated; F15.10 Other stimulant abuse, uncomplicated; Z79.4 Long term (current) use of insulin; Z82.49 Family history of ischemic heart disease and other diseases of the circulatory system; Z83.3 Family history of diabetes mellitus; Z79.84 Long term (current) use of oral hypoglycemic drugs; Z79.899 Other long term (current) drug therapy; Z71.6 Tobacco abuse counseling; Z71.51 Drug abuse counseling and surveillance of drug abuser
CPT/HCPCS: 36415; 71045; 71275; 80053; 80061; 80305; 81001; 82948; 83036; 83605; 83735; 83880; 84145; 84484; 85025; 87040; 87070; 87081; 93306; 93971; 94640; 94760; 96361; 96365; 96375; 99285; G0378; J0690; J0696; J1100; J1650; J1815; J1940; J2920; J3490; J7030; Q9967

== ENCOUNTER 2023-02-20 09:47 | Inpatient (IN) | payer MEDICAID ==
[~2023-02-20] VITALS: Ht 167.6 cm; Wt 100.0 kg
[~2023-02-20 09:47] MED LIST changes: +ATOR20TA66 PO; +BLOO1EAC70 MC; +FURO20TA4 PO; -INSU100I27 SQ; +LANC-854 TOP; +LANC1COM7 SQ; +LANTUS SQ; +LISI5TAB22 PO; +METO-395 PO; -PEN1DIS.78 SQ; +SYRI-641 SUBCUT
--- NOTE | 2023-02-20 10:04 | NUR ---
DR LOO AWARE OF PATIENT, ORDERS RECEIVED, PRIMARY RN CARYN AWARE.
[2023-02-20] MEDS ORDERED: ipratropium/albuterol 3ml nebule NEB STA (10:29)
[2023-02-20] MEDS ORDERED: methylPREDNISolone sod succ 125mg/2ml vial IV ONE (10:30)
[2023-02-20] MEDS ORDERED: aspirin 325mg tablet, delayed-release (Ecotrin) PO ONE (10:40)
--- NOTE | 2023-02-20 10:55 | NUR ---
RT paged regarding breathing trreatment ordered
[2023-02-20 11:05] LABS: D-DIMER 0.96 MG/L FEU (0-0.50)
[2023-02-20 11:07] LABS: BASOPHILS % (AUTO) 0.7 % (0-1); EOSINOPHILS # (AUTO) 0.1 X10'3 (0-0.9); HEMATOCRIT 44.7 % (42.0-52.0); HEMOGLOBIN 14.9 g/dl (14.0-17.9); LYMPHOCYTES # (AUTO) 2.5 X10'3 (1.1-4.8); LYMPHOCYTES % (AUTO) 34.3 % (21-51); MEAN CORPUSCULAR HEMOGLOBIN 29.7 PG (27.0-31.0); MEAN CORPUSCULAR HGB CONC 33.4 g/dL (33.0-36.5); MEAN CORPUSCULAR VOLUME 89.1 FL (78-98); MEAN PLATELET VOLUME 7.7 FL (7.4-10.4); MONOCYTES # (AUTO) 0.7 X10'3 (0-0.9); MONOCYTES % (AUTO) 9.3 % (2-12); NEUTROPHILS # (AUTO) 3.9 X10'3 (1.8-7.7); NEUTROPHILS % (AUTO) 54.7 % (42-75); PLATELET COUNT 405 X10'3 (140-440); RED BLOOD COUNT 5.02 X10'6 (4.70-6.10); RED CELL DISTRIBUTION WIDTH 13.7 % (11.5-14.5); WHITE BLOOD COUNT 7.1 X10'3 (4.5-11.0)
[2023-02-20 11:09] LABS: ALANINE AMINOTRANSFERASE 42 U/L (12-78); ALBUMIN 3.6 G/DL (3.4-5.0); ALBUMIN/GLOBULIN RATIO 0.9 (1.1-1.5); ALKALINE PHOSPHATASE 111 IU/L (46-116); ANION GAP 5 (8-16); ASPARTATE AMINO TRANSFERASE 24 U/L (10-37); BILIRUBIN,TOTAL 0.3 MG/DL (0.1-1.0); BLOOD UREA NITROGEN 21 MG/DL (7-18); BUN/CREATININE RATIO 20.8 (10.0-20.0); CALCIUM 9.8 MG/DL (8.5-10.1); CHLORIDE 103 MMOL/L (99-107); CREATININE 1.01 MG/DL (0.60-1.10); GLUCOSE 176 MG/DL (70-104); POTASSIUM 4.7 MMOL/L (3.5-5.1); SODIUM 138 MMOL/L (135-145); TOTAL CARBON DIOXIDE 30.4 MMOL/L (24-32); TOTAL PROTEIN 7.6 G/DL (6.4-8.2); eCRCL 73 ML/MIN; eGFR 76 ML/MIN
[2023-02-20] MEDS: normal saline 500ml IV soln 500 ML IV SCH ×2 (11:15→13:15)
[2023-02-20 11:18] LABS: PRO BRAIN NATRIURETIC PEPTIDE 1917 PG/ML (0-125)
--- NOTE | 2023-02-20 11:25 | NUR ---
Covid binax done, patient was resistive during procedure. I was not able to do the flu testing as he refused further testing into his nostrils
[2023-02-20] MEDS ORDERED: iohexol 350MG/ML 100ml bottle IV ONE (11:29)
[2023-02-20 11:36] VITALS: PULSE 94; RESP 23; O2SAT 97
[2023-02-20 11:41] VITALS: PULSE 101; RESP 18; O2SAT 99
[2023-02-20] MEDS ORDERED: furosemide 10 MG/1 ML 10ml inj IV ONE (12:00)
[2023-02-20] MEDS ORDERED: ipratropium/albuterol 3ml nebule NEB PRN (15:55)
[2023-02-20] MEDS ORDERED: magnesium 2GM in 50ml NS 50 ML IV PRN (16:00)
[2023-02-20] MEDS ORDERED: acetaminophen 650mg rectal suppository RC PRN (16:00)
[2023-02-20] MEDS ORDERED: potassium Cl 40MEQ/1/2NS 520ml 520 ML IV PRN (16:00)
[2023-02-20] MEDS ORDERED: HYDROcodone/acetaminophen 5mg/325mg tablet PO PRN (16:00)
[2023-02-20] MEDS ORDERED: mag hydrox/Alum hydrox/simeth 30ml oral suspension PO PRN (16:00)
[2023-02-20] MEDS ORDERED: ondansetron/PF 4mg/2ml inj IV PRN (16:00)
[2023-02-20] MEDS ORDERED: MESSAGE TO PHARMACY PO ONE (16:00)
[2023-02-20] MEDS ORDERED: potassium Cl 20 mEq SR tablet PO PRN ×2 (16:00)
[2023-02-20] MEDS ORDERED: DEXTROSE 15 GM of carb/4 tabs (each vial/BOTTLE has 4 tablets) PO PRN ×2 (16:00)
[2023-02-20] MEDS ORDERED: glucagon, human recombinant 1mg kit SUBCUT PRN (16:00)
[2023-02-20] MEDS ORDERED: dextrose 50%-water 50ml dispensing syringe IV PRN ×2 (16:00)
[2023-02-20] MEDS ORDERED: magnesium 4gm in 100ml NS 100 ML IV PRN (16:00)
[2023-02-20] MEDS ORDERED: bisacodyl 10mg suppository rectal RC PRN (16:00)
[2023-02-20] MEDS ORDERED: magnesium hydroxide 30ml (MOM) UD suspension PO PRN (16:00)
[2023-02-20] MEDS ORDERED: magnesium Cl slow-release 64mg tablet PO PRN (16:00)
[2023-02-20] MEDS ORDERED: HYDROcodone/acetaminophen 10/325mg tab PO PRN (16:00)
[2023-02-20] MEDS ORDERED: PERFLUTREN PROTEIN-A MICROSPHR (Optison) 0.22 MG/ML 3ML VIAL IV ONE (16:00)
[2023-02-20] MEDS ORDERED: diphenhydrAMINE 25mg capsule PO PRN (16:00)
[2023-02-20] MEDS ORDERED: acetaminophen 325mg tablet PO PRN ×2 (16:00)
[2023-02-20 16:20] LABS: HEMOGLOBIN A1C 7.7 % (4.5-6.2)
[2023-02-20] MEDS: normal saline 1000ml 1,000 ML IV SCH (16:21)
[2023-02-20] MEDS: azithromycin 250mg tablet PO SCH (16:25)
[2023-02-20] MEDS: CefTRIAXone/D5W-Rocephin 1gm 50 ML IV SCH (16:26)
--- NOTE | 2023-02-20 17:21 | NUR ---
Dr. Oliveira seen the patient. Dr. Oliveira aware that patient reported allergy to insulin glargine (Basaglar). Patient reported to Dr. Oliveira that he had taken insulin glargine (brand name Lantus) previously without any problem. Dr. Oliveira told patient that Basaglar is the same as Lantus just a different brand. Per Dr. Oliveira we can switch the Lantus order to patient's own insulin Basaglar. Patient stated he was okay to have Basaglar
[2023-02-20] MEDS ORDERED: INSU100I31 SUBCUT (17:49)
--- NOTE | 2023-02-20 18:17 | NUR ---
Dr. Oliveira was paged to address the medication reconciliation reviewed
[2023-02-20] MEDS: K and/or MAG REPLACEMENT MC SCH (20:00)
[2023-02-20] MEDS: methylPREDNISolone sod succ 125mg/2ml vial IV SCH (20:20)
[2023-02-20] MEDS: furosemide 10 MG/1 ML 10ml inj IV SCH (20:20)
[2023-02-20] MEDS: docusate sod 100mg capsule PO SCH (20:21)
[2023-02-20] MEDS: heparin, porcine 5000 units/ml vial SQ SCH (20:34)
[2023-02-20 20:46] VITALS: PULSE 98; RESP 18; O2SAT 97
[2023-02-20] MEDS: ipratropium/albuterol 3ml nebule NEB SCH (20:48)
[2023-02-20 20:55] VITALS: PULSE 102; RESP 16
[2023-02-20] MEDS ORDERED: insulin glargine (Lantus) pen - multi-dose SQ SCH (21:00)
[2023-02-20 21:20] LABS: BILIRUBIN,URINE NEGATIVE (Neg); CLARITY,URINE CLEAR (Clear); COLOR,URINE YELLOW (Yellow); GLUCOSE, URINE >=1000 mg/dl (Neg); KETONES,URINE NEGATIVE (Neg); LEUKOCYTE ESTERASE ,URINE NEGATIVE (Neg); NITRITES, URINE NEGATIVE (Neg); OCCULT BLOOD,URINE NEGATIVE (Neg); PROTEIN,URINE NEGATIVE (Neg); UROBILINOGEN,URINE 0.2 E.U/dL (0.2-1.0)
[2023-02-20 21:21] LABS: UA COLLECTION TYPE CLN CATCH MIDSTREAM
--- NOTE | 2023-02-20 21:23 | NUR ---
PT REFUSES FLU REST, ATTEMPTED TO OBTAIN AND NOT ABLE TO GET PAST HAIRS STICKING OUT. PT GRABBED MY HAND AND PULLED OUT. PT HAD BLEEDING 2 DAYS AFTER LAST SWAB OBTAINED IN PAST
[2023-02-20 21:26] LABS: BACTERIA,URINE NONE SEEN /HPF (Neg); MUCUS STRANDS NONE SEEN /LPF (Neg); SQUAMOUS EPITHELIAL CELL,UR NONE SEEN /LPF (FEW); WBC,URINE NONE SEEN /HPF (0-4)
[2023-02-20 21:31] LABS: URINE AMPHETAMINE SCREEN POSITIVE (Neg); URINE BARBITUATE SCREEN NEGATIVE (Neg); URINE BENZODIAZEPINES SCREEN NEGATIVE (Neg); URINE CANNABINOID SCREEN NEGATIVE (Neg); URINE COCAINE SCREEN NEGATIVE (Neg); URINE METHADONE SCREEN NEGATIVE (Neg); URINE OPIATE SCREEN NEGATIVE (Neg); URINE PHENCYCLIDINE SCREEN NEGATIVE (Neg)
--- NOTE | 2023-02-20 23:53 | NUR ---
PT PLACED ON HOSPITAL BED FOR COMFORT.
[2023-02-21] VITALS (13 sets, daily range): BP systolic 112–124; BP diastolic 61–82; PULSE 96–120; RESP 15–20; TEMP 97.8–98.3; O2SAT 91–100
[2023-02-21] MEDS: methylPREDNISolone sod succ 125mg/2ml vial IV SCH ×4 (02:07→20:25)
[2023-02-21] MEDS: ipratropium/albuterol 3ml nebule NEB SCH ×4 (02:28→20:01)
--- NOTE | 2023-02-21 07:19 | NUR ---
Report called to YOON Andersen on PCU. Patient transferred upstairs on hospital bed.
[2023-02-21] MEDS ORDERED: lisinopril 5mg tablet PO SCH (08:00)
[2023-02-21] MEDS: CefTRIAXone/D5W-Rocephin 1gm 50 ML IV SCH (08:00)
[2023-02-21] MEDS ORDERED: metoprolol succinate 25mg (24-HOUR) SR. Tablet PO SCH (08:00)
[2023-02-21] MEDS ORDERED: atorvastatin 20mg tablet PO SCH (08:00)
[2023-02-21] MEDS: K and/or MAG REPLACEMENT MC SCH ×2 (08:00→20:00)
[2023-02-21 08:08] LABS: ALANINE AMINOTRANSFERASE 34 U/L (12-78); ALBUMIN 3.1 G/DL (3.4-5.0); ALBUMIN/GLOBULIN RATIO 0.8 (1.1-1.5); ALKALINE PHOSPHATASE 87 IU/L (46-116); ANION GAP 8 (8-16); ASPARTATE AMINO TRANSFERASE 17 U/L (10-37); BILIRUBIN,TOTAL 0.4 MG/DL (0.1-1.0); BLOOD UREA NITROGEN 22 MG/DL (7-18); BUN/CREATININE RATIO 17.9 (10.0-20.0); CALCIUM 8.8 MG/DL (8.5-10.1); CHLORIDE 101 MMOL/L (99-107); CHOL/HDL RATIO 3.5 (0.00-4.99); CHOLESTEROL 170 MG/DL (0-200); CREATININE 1.23 MG/DL (0.60-1.10); GLUCOSE 303 MG/DL (70-104); HDL CHOLESTEROL 48 MG/DL (35-60); LDL CHOLESTEROL 107 MG/DL (50-100); PHOSPHORUS 4.2 MG/DL (2.3-4.5); POTASSIUM 3.9 MMOL/L (3.5-5.1); SODIUM 138 MMOL/L (135-145); TOTAL CARBON DIOXIDE 28.9 MMOL/L (24-32); TOTAL PROTEIN 6.9 G/DL (6.4-8.2); TRIGLYCERIDES 51 MG/DL (20-135); eCRCL 60 ML/MIN; eGFR 61 ML/MIN
--- NOTE | 2023-02-21 08:43 | NUR ---
PT. REFUSED 0800 SVN. bs DIMINISHED WITHOUT WHEEZING. spo@ 94% ON 2 L/M o2. pT DOES NOT APPEAR TO BE SOB
[2023-02-21] MEDS: docusate sod 100mg capsule PO SCH ×2 (08:53→20:26)
[2023-02-21] MEDS: azithromycin 250mg tablet PO SCH (08:53)
[2023-02-21] MEDS: heparin, porcine 5000 units/ml vial SQ SCH ×2 (08:55→20:26)
[2023-02-21] MEDS: furosemide 10 MG/1 ML 10ml inj IV SCH ×2 (09:01→20:26)
[2023-02-21] MEDS: insulin Lispro (HumaLOG) vial - multi-dose SQ SCH ×3 (09:25→21:41)
[2023-02-21 09:35] LABS: BASOPHILS % (AUTO) 0.1 % (0-1); EOSINOPHILS % (AUTO) 0 % (0-6); HEMATOCRIT 42.9 % (42.0-52.0); HEMOGLOBIN 14.2 g/dl (14.0-17.9); LYMPHOCYTES # (AUTO) 0.6 X10'3 (1.1-4.8); LYMPHOCYTES % (AUTO) 9.9 % (21-51); MEAN CORPUSCULAR HEMOGLOBIN 29.5 PG (27.0-31.0); MEAN CORPUSCULAR HGB CONC 33.2 g/dL (33.0-36.5); MEAN CORPUSCULAR VOLUME 88.8 FL (78-98); MEAN PLATELET VOLUME 8.1 FL (7.4-10.4); MONOCYTES # (AUTO) 0.2 X10'3 (0-0.9); MONOCYTES % (AUTO) 2.4 % (2-12); NEUTROPHILS # (AUTO) 5.7 X10'3 (1.8-7.7); NEUTROPHILS % (AUTO) 87.6 % (42-75); PLATELET COUNT 398 X10'3 (140-440); RED BLOOD COUNT 4.83 X10'6 (4.70-6.10); RED CELL DISTRIBUTION WIDTH 13.9 % (11.5-14.5); WHITE BLOOD COUNT 6.5 X10'3 (4.5-11.0)
[2023-02-21] MEDS: normal saline 1000ml 1,000 ML IV SCH (11:55)
--- NOTE | 2023-02-21 17:08 | NUR ---
DM Consult: Pt admit DX CHF/COPD exacerbations and meth abuse hx DM A1C 7.7% down from prior >12.0% 08/28/2022 per EMR. Pt takes Lantus 30 units BID w/ allergy to Basaglar addressed by this admit per EMR. Pt resting during RD visit for DM ed remained passive and went back to resting when RD explained reason for visit. Pt was agreeable to written DM diet ed w/ RD contact information left at bedside. Addendum: 02/21/23 at [address] Amended: Links added.
--- NOTE | 2023-02-21 18:31 | NUR ---
Problems reprioritized. Patient report given, questions answered & plan of care reviewed with Carol Addendum: 02/21/23 at 1831 by Ganesh Mccracken RN Amended: Links added.
--- NOTE | 2023-02-21 21:00 | NUR ---
Pt requested glucometer for home use. Informed pt that we can get them in contact with social service director during day shift to set that up Addendum: 02/22/23 at 0201 by Carol Eli RN Case management/business services vice president
--- NOTE | 2023-02-21 21:11 | NUR ---
called for 2100 BS of 307. ordered 1 time dose of 8 units of Humalog. Order read back and given to pt.
[2023-02-22 02:00] VITALS: BP 114/76; PULSE 93; RESP 14; TEMP 97.5; O2SAT 96
[2023-02-22] MEDS: ipratropium/albuterol 3ml nebule NEB SCH (02:00)
[2023-02-22] MEDS: methylPREDNISolone sod succ 125mg/2ml vial IV SCH (02:09)
--- NOTE | 2023-02-22 05:00 | NUR ---
MD called about pt receiving fluids, lasix, and eating and drinking okay. Pt is making good urine (>30 mL/hr) and is tolerating PO fluids. MD ordered to stop Normal saline. Order read back and placed per MD.
--- NOTE | 2023-02-22 06:20 | NUR ---
Problems reprioritized. Patient report given, questions answered & plan of care reviewed with Rowdy RN and Geraldine NETTLES.
--- NOTE | 2023-02-22 06:45 | NUR ---
Patient in room PCU 3028. I have received report from Carol NETTLES and had the opportunity to ask questions and assume patient care.
--- NOTE | 2023-02-22 07:07 | NUR ---
Pt is refusing labs and blood checks. States he wants to leave, grabbing AMA forms for him to sign.
--- NOTE | 2023-02-22 07:43 | NUR ---
Pt has signed the AMA form and the Dr has been notified. We told the pt we were going to the pharmacy to get his checked in med and he verbalized he understood. Upon returning we found that he had already left without his med.
[2023-02-22] MEDS ORDERED: lisinopril 5mg tablet PO SCH (08:00)
== END 2023-02-22 07:17 | disposition left against medical advice (07) | DRG 140 ==
LOC: ER 09:47 → ED HOLD 16:00 → EDBEDREQ 02-21 05:29 → PCU 3S 02-21 07:35
PROVIDERS: ADMIT Family Medicine; ATTEND Family Medicine
PROC: B32T1ZZ Computerized Tomography (CT Scan) of Left Pulmonary Artery using Low Osmolar Contrast (ICD-10-PCS; principal; 2023-02-20)
PROC: B3201ZZ Computerized Tomography (CT Scan) of Thoracic Aorta using Low Osmolar Contrast (ICD-10-PCS; 2023-02-20)
PROC: B32S1ZZ Computerized Tomography (CT Scan) of Right Pulmonary Artery using Low Osmolar Contrast (ICD-10-PCS; 2023-02-20)
DX: J44.1 Chronic obstructive pulmonary disease with (acute) exacerbation (principal); J96.20 Acute and chronic respiratory failure, unspecified whether with hypoxia or hypercapnia; I50.23 Acute on chronic systolic (congestive) heart failure; N17.9 Acute kidney failure, unspecified; I11.0 Hypertensive heart disease with heart failure; Z20.822 Contact with and (suspected) exposure to COVID-19; I42.7 Cardiomyopathy due to drug and external agent; E11.9 Type 2 diabetes mellitus without complications; Z53.29 Procedure and treatment not carried out because of patient's decision for other reasons; E66.01 Morbid (severe) obesity due to excess calories; E78.5 Hyperlipidemia, unspecified; F17.210 Nicotine dependence, cigarettes, uncomplicated; F15.20 Other stimulant dependence, uncomplicated; Z79.4 Long term (current) use of insulin; Z82.49 Family history of ischemic heart disease and other diseases of the circulatory system; Z83.3 Family history of diabetes mellitus; Z91.199 Patient's noncompliance with other medical treatment and regimen due to unspecified reason; Z88.8 Allergy status to other drugs, medicaments and biological substances; Z68.35 Body mass index [BMI] 35.0-35.9, adult; Z79.899 Other long term (current) drug therapy; Z71.6 Tobacco abuse counseling
CPT/HCPCS: 36415; 71045; 71275; 80053; 80061; 80305; 81001; 82948; 83036; 83605; 83735; 83880; 84100; 84145; 84484; 85025; 85379; 87040; 87811; 93005; 93306; 94640; 94760; 99285; G0378; J0696; J1644; J1815; J1940; J2930; J3490; J7030; J7040; Q9967